=== PATIENT | female | born 1940 | race Hispanic/Latino ===

== ENCOUNTER 2022-04-23 23:19 | Emergency (ER) | payer OTHER ==
--- NOTE | 2022-04-23 23:33 | Emergency Department Report ---
ED General Adult HPI - General Chief complaint: Neuro Symptoms/Deficit Stated complaint: RT SIDE WEAKNESS Time Seen by Provider: 04/23/22 23:24 Source: patient, EMS (Verbal report received from emergency medical services. EMS documentation not available at time of chart dictation ), RN notes reviewed Mode of arrival: Stretcher Limitations: Physical Limitation - History of Present Illness Initial comments: The patient was evaluated in the emergency department for symptoms described in the history of present illness. He/she was evaluated in the context of the global COVID-19 pandemic, which necessitated consideration that the patient might be at risk for infection with the virus that causes COVID-19. Institutional protocols and algorithms that pertain to the evaluation of patients at risk for COVID-19 are in a state of rapid change based on i nformation released by regulatory bodies including the CDC and federal and state organizations. These policies and algorithms were followed during the patient's care in the emergency department. Please note that these policies, procedures and recommendations changed on a rapid basis. Primary care doctor: Tien clemons; Tien #[id number] This is an 82-year-old female. She presents to the department today with a complaint of right arm and right leg weakness and numbness. Reports that her last known well time is 10:00 AM yesterday. She was recently seen at [facility], with a diagnosis of dizzinessheadache, back pain, nausea, hyperlipidemia, and tobacco smoker. Patient had imaging tests, including CT scan brain, CT angiogram head and neck, as well as MRI brain and brainstem. The results of these tests are not known to myself at this time. Patient has follow-up with a neurologist on April 25, and also has follow-up with neurology, on April 29. It appears that she also was [facility], and is currently awaiting for her appointment. She denies headache, midline neck pain, chest pain, abdominal pain, shortness of breath, vomiting, diarrhea and urinary symptoms. She has chronic right-sided hip pain, as well as chronic lower back pain. She feels that her right arm and right leg weakness and numbness are consistent and not getting any better since yesterday -: days(s) Location: left, right, lower extremity Consistency: constant Worsens with: none ED Review of Systems ROS: Stated complaint: RT SIDE WEAKNESS Other details as noted in HPI Constitutional: denies: fever, malaise Eyes: denies: eye discharge ENT: denies: epistaxis Respiratory: denies: cough Cardiovascular: denies: chest pain Gastrointestinal: denies: abdominal pain Musculoskeletal: arthralgia, myalgia. denies: back pain Neurological: weakness, numbness ED Physical Exam - General Limitations: Physical Limitation General appearance: alert, in no apparent distress - Head Head exam: Present: atraumatic, normocephalic - Eye Eye exam: Present: normal appearance, EOMI. Absent: nystagmus - ENT ENT exam: Present: normal exam, normal orophraynx, mucous membranes moist, normal external ear exam - Neck Neck exam: Present: normal inspection, full ROM. Absent: tenderness, meningismus - Respiratory Respiratory exam: Present: normal lung sounds bilaterally. Absent: respiratory distress, wheezes, rales, rhonchi, stridor, decreased breath sounds - Cardiovascular Cardiovascular Exam: Present: regular rate, normal rhythm, normal heart sounds. Absent: bradycardia, tachycardia, irregular rhythm, systolic murmur, diastolic murmur, rubs, gallop - GI/Abdominal GI/Abdominal exam: Present: soft. Absent: distended, tenderness, guarding, rebound, rigid, pulsatile mass - Extremities Exam Extremities exam: Present: normal inspection, full ROM (Left arm and left leg), other (2+ pulses noted in the bilateral upper and lower extremities. There is no palpable cord. negative Homans sign. Muscular compartments are soft. The pelvis is stable.). Absent: calf tenderness - Back Exam Back exam: Present: normal inspection. Absent: tenderness, CVA tenderness (R), CVA tenderness (L), paraspinal tenderness, vertebral tenderness - Neurological Exam Neurological exam: Present: alert, oriented X3, motor sensory deficit (Decree se nsation to light touch right arm and right leg. There is dysmetria noted in the right upper extremity. There is 4 out of 5 strength right arm and right leg), other (There is no facial droop. The tongue is midline. EOMI. 5 out of 5 strength left arm and left leg) - Psychiatric Psychiatric exam: Present: anxious - Skin Skin exam: Present: warm, dry, intact, normal color. Absent: rash ED Course Vital Signs 04/24/22 04/24/22 04/24/22 01:10 02:00 03:00 Temperature 97.8 F Pulse Rate 99 H 83 83 Respiratory 14 98 H 14 Rate Blood Pressure 124/68 164/91 154/65 [Left] O2 Sat by Pulse 96 95 Oximetry - Reevaluation(s) Reevaluation #1: 04/23/22 23:41 Differential diagnosis, including not limited to: Subacute stroke, radiculopathy, deconditioning, myopathy, peripheral neuropathy Assessment and plan: 82-year-old female presenting with right-sided weakness since 10:00 AM yesterday. Patient was reportedly seen at local [place] outside facility, had extensive diagnostic work-up done, the specific results of which are not available to myself at this time. It appears that she has a follow-up with a neurologist in 2 days, as well as follow-up with primary care in 6 days. She is also referred to outpatient physical therapy. We will attempt to obtain results of her recent imaging studies. We will obtain appropriate laboratory studies, x-ray of the chest, x-ray of the pelvis, and noncontrast CT scan of the brain. The patient is not a tPA candidate as she presents more than 4.5 hours after her last known well time. An emergent CT angiogram head and neck is not indicated at this time, as she is presenting more than 24 hours after her last known well time. 04/24/22 02:39 Laboratory studies essentially nonactionable. Discussed with [facility] physician, Dr. Padilla. Patient was just admitted to the [facility] care [place], and had an MRI MRA 2 days ago, which was incomplete secondary to the patient terminated the procedure. Visualized portions of MRI were negative for stroke, but this was an incomplete diagnostic test. However, she also indicates that the patient had an incomplete MRI MRA, as the patient refused completion of the MRI. In addition, an echocardiogram was renato mmended, as was admission to the hospital, initiation of physical therapy. The patient has follow-up with a neurologist tomorrow, April 25, at 12:20 PM. She has follow-up with her primary care doctor on April 29, 4:00 PM. The patient also has referral to physical therapy. As per discussion with Dr. Padilla, patient not on aspirin or antiplatelet candidate, given history of GI bleed. Extensive discussion had with patient and family at the bedside. 04/24/22 02:52 I recommended admission to our hospital for MRI, echocardiogram, and carotid duplex. Discussed rationale extensively with patient and family at the bedside. They articulated understanding. Patient is refusing admission and hospitalization. I suspect that the patient has had a small subacute stroke. She has follow-up with neurology tomorrow. The risks of leaving, including , disability, paralysis, permanent loss of quality of life are discussed with patient and family members at the bedside. At the moment, the patient is awake, alert, oriented, sober, of sound mind and exhibits decision-making capacity. She is free from distracting injury. She understands the risks of leaving AMA. Family states that they will watch her closely, patient to walk with a walker. Return precautions are reviewed. All questions answered. [facility] is updated 04/24/22 05:23 ED Medical Decision Making - Lab Data Result diagrams: 04/23/22 23:42 04/23/22 23:42 Vital Signs 04/24/22 01:10 Temperature 97.8 F Pulse Rate 99 H Respiratory 14 Rate Blood Pressure 124/68 [Left] O2 Sat by Pulse 96 Oximetry Lab Results 04/23/22 04/23/22 04/23/22 Range/Units 23:42 23:42 23:42 WBC 5.9 (4.5-11.0) K/mm3 RBC 4.46 (3.65-5.03) M/mm3 Hgb 11.1 (10.1-14.3) gm/dl Hct 35.4 (30.3-42.9) % MCV 79 (79-97) fl MCH 25 L (28-32) pg MCHC 31 (30-34) % RDW 18.4 H (13.2-15.2) % Plt Count 230 (140-440) K/mm3 Lymph % (Auto) 30.0 (13.4-35.0) % Mathews % (Auto) 7.0 (0.0-7.3) % Eos % (Auto) 2.0 (0.0-4.3) % Baso % (Auto) 1.0 (0.0-1.8) % Lymph # (Auto) 1.8 (1.2-5.4) K/mm3 Mathews # (Auto) 0.4 (0.0-0.8) K/mm3 Eos # (Auto) 0.1 (0.0-0.4) K/mm3 Baso # (Auto) 0.1 (0.0-0.1) K/mm3 Seg Neutrophils % 60.0 (40.0-70.0) % Seg Neutrophils # 3.5 (1.8-7.7) K/mm3 PT 12.7 (12.2-14.9) Sec. INR 0.84 L (0.87-1.13) APTT 24.2 (24.2-36.6) Sec. Thrombin Time 15.3 (15.1-19.6) Sec. Sodium (137-145) mmol/L Potassium (3.6-5.0) mmol/L Chloride (98-107) mmol/L Carbon Dioxide (22-30) mmol/L Anion Gap mmol/L BUN (7-17) mg/dL Creatinine (0.6-1.2) mg/dL Estimated GFR ml/min BUN/Creatinine Ratio % Glucose (65-100) mg/dL Calcium (8.4-10.2) mg/dL Magnesium (1.7-2.3) mg/dL Total Bilirubin (0.1-1.2) mg/dL AST (5-40) units/L ALT (7-56) units/L Alkaline Phosphatase (35-129) units/L Total Creatine Kinase 90 (30-135) units/L CK-MB (CK-2) 2.9 (0.0-4.0) ng/mL CK-MB (CK-2) Rel Index 3.2 (0-4) Troponin T < 0.010 (0.00-0.029) ng/mL Total Protein (6.3-8.2) g/dL Albumin (3.9-5) g/dL Albumin/Globulin Ratio % TSH (0.270-4.200) mlU/mL Urine Color (Yellow) Urine Turbidity (Clear) Specific [place] (Man) (1.003-1.030) Ur Protein (Man) (Negative) mg/dL Ur Ketones (Man) (Negative) Ur Nitrite (Man) (Negative) Urine Bilirubin (Man) (Negative) Leukocyte Esterase (Man) (Negative) Urine WBC (Auto) (0.0-6.0) /HPF Urine RBC (Auto) (0.0-6.0) /HPF U Epithel Cells (Auto) (0-13.0) /HPF Urine RBC (Manual) (Negative) Urine Mucus /HPF Salicylates (2.8-20.0) mg/dL Acetaminophen (10.0-30.0) ug/mL 04/23/22 04/23/22 04/23/22 Range/Units 23:42 23:42 23:42 WBC (4.5-11.0) K/mm3 RBC (3.65-5.03) M/mm3 Hgb (10.1-14.3) gm/dl Hct (30.3-42.9) % MCV (79-97) fl MCH (28-32) pg MCHC (30-34) % RDW (13.2-15.2) % Plt Count (140-440) K/mm3 Lymph % (Auto) (13.4-35.0) % Mathews % (Auto) (0.0-7.3) % Eos % (Auto) (0.0-4.3) % Baso % (Auto) (0.0-1.8) % Lymph # (Auto) (1.2-5.4) K/mm3 Mathews # (Auto) (0.0-0.8) K/mm3 Eos # (Auto) (0.0-0.4) K/mm3 Baso # (Auto) (0.0-0.1) K/mm3 Seg Neutrophils % (40.0-70.0) % Seg Neutrophils # (1.8-7.7) K/mm3 PT (12.2-14.9) Sec. INR (0.87-1.13) APTT (24.2-36.6) Sec. Thrombin Time (15.1-19.6) Sec. Sodium 138 (137-145) mmol/L Potassium 4.7 (3.6-5.0) mmol/L Chloride 101.3 (98-107) mmol/L Carbon Dioxide 23 (22-30) mmol/L Anion Gap 18 mmol/L BUN 12 (7-17) mg/dL Creatinine 1.0 (0.6-1.2) mg/dL Estimated GFR 53 ml/min BUN/Creatinine Ratio 12 % Glucose 96 (65-100) mg/dL Calcium 8.8 (8.4-10.2) mg/dL Magnesium 2.20 (1.7-2.3) mg/dL Total Bilirubin 0.50 (0.1-1.2) mg/dL AST 21 (5-40) units/L ALT 15 (7-56) units/L Alkaline Phosphatase 72 (35-129) units/L Total Creatine Kinase 91 (30-135) units/L CK-MB (CK-2) (0.0-4.0) ng/mL CK-MB (CK-2) Rel Index (0-4) Troponin T (0.00-0.029) ng/mL Total Protein 6.4 (6.3-8.2) g/dL Albumin 4.2 (3.9-5) g/dL Albumin/Globulin Ratio 1.9 % TSH 0.852 (0.270-4.200) mlU/mL Urine Color (Yellow) Urine Turbidity (Clear) Specific [place] (Man) (1.003-1.030) Ur Protein (Man) (Negative) mg/dL Ur Ketones (Man) (Negative) Ur Nitrite (Man) (Negative) Urine Bilirubin (Man) (Negative) Leukocyte Esterase (Man) (Negative) Urine WBC (Auto) (0.0-6.0) /HPF Urine RBC (Auto) (0.0-6.0) /HPF U Epithel Cells (Auto) (0-13.0) /HPF Urine RBC (Manual) (Negative) Urine Mucus /HPF Salicylates < 0.3 L (2.8-20.0) mg/dL Acetaminophen (10.0-30.0) ug/mL 04/23/22 04/23/22 Range/Units 23:42 Unknown WBC (4.5-11.0) K/mm3 RBC (3.65-5.03) M/mm3 Hgb (10.1-14.3) gm/dl Hct (30.3-42.9) % MCV (79-97) fl MCH (28-32) pg MCHC (30-34) % RDW (13.2-15.2) % Plt Count (140-440) K/mm3 Lymph % (Auto) (13.4-35.0) % Mathews % (Auto) (0.0-7.3) % Eos % (Auto) (0.0-4.3) % Baso % (Auto) (0.0-1.8) % Lymph # (Auto) (1.2-5.4) K/mm3 Mathews # (Auto) (0.0-0.8) K/mm3 Eos # (Auto) (0.0-0.4) K/mm3 Baso # (Auto) (0.0-0.1) K/mm3 Seg Neutrophils % (40.0-70.0) % Seg Neutrophils # (1.8-7.7) K/mm3 PT (12.2-14.9) Sec. INR (0.87-1.13) APTT (24.2-36.6) Sec. Thrombin Time (15.1-19.6) Sec. Sodium (137-145) mmol/L Potassium (3.6-5.0) mmol/L Chloride (98-107) mmol/L Carbon Dioxide (22-30) mmol/L Anion Gap mmol/L BUN (7-17) mg/dL Creatinine (0.6-1.2) mg/dL Estimated GFR ml/min BUN/Creatinine Ratio % Glucose (65-100) mg/dL Calcium (8.4-10.2) mg/dL Magnesium (1.7-2.3) mg/dL Total Bilirubin (0.1-1.2) mg/dL AST (5-40) units/L ALT (7-56) units/L Alkaline Phosphatase (35-129) units/L Total Creatine Kinase (30-135) units/L CK-MB (CK-2) (0.0-4.0) ng/mL CK-MB (CK-2) Rel Index (0-4) Troponin T (0.00-0.029) ng/mL Total Protein (6.3-8.2) g/dL Albumin (3.9-5) g/dL Albumin/Globulin Ratio % TSH (0.270-4.200) mlU/mL Urine Color Colorless (Yellow) Urine Turbidity Clear (Clear) Specific [place] (Man) 1.000 L (1.003-1.030) Ur Protein (Man) <30 mg dl (Negative) mg/dL Ur Ketones (Man) Negative (Negative) Ur Nitrite (Man) Negative (Negative) Urine Bilirubin (Man) Negative (Negative) Leukocyte Esterase (Man) Negative (Negative) Urine WBC (Auto) 2.0 (0.0-6.0) /HPF Urine RBC (Auto) < 1.0 (0.0-6.0) /HPF U Epithel Cells (Auto) 3.0 (0-13.0) /HPF Urine RBC (Manual) Trace (Negative) Urine Mucus Few /HPF Salicylates (2.8-20.0) mg/dL Acetaminophen 5.0 L (10.0-30.0) ug/mL - EKG Data -: EKG Interpreted by Mi EKG shows normal: sinus rhythm Rate: normal - EKG Data When compared to previous EKG there are: previous EKG unavailable 04/24/22 02:38 The EKG is interpreted at 1: 42 Sinus rhythm, 80 bpm. Normal axis, normal P wave axis, normal intervals, and motion artifact. This EKG is not a STEMI - Radiology Data Radiology results: pending, report reviewed, image reviewed CT HEAD WITHOUT CONTRAST INDICATION / CLINICAL INFORMATION: Right-sided weakness,. TECHNIQUE: CT head was performed without administration of intravenous contrast. All CT scans at this location are performed using CT dose reduction for ALARA by means of automated exposure control. COMPARISON: None available. FINDINGS: CEREBRAL HEMISPHERES: Minimal atrophy is present. There is extensive bilateral white matter hypoattenuation compatible with advanced microvascular ischemic disease. Small lacunar infarction additionally suggested within the left basal ganglia. HEMORRHAGE: None. CEREBELLUM / BRAINSTEM: No significant abnormality. ORBITS: No significant abnormality. SOFT TISSUES: No significant abnormality. SKULL: No significant abnormality. PARANASAL SINUSES / MASTOID AIR CELLS: Normal as visualized. ADDITIONAL FINDINGS: None. IMPRESSION: 1. Extensive bilateral white matter hypoattenuation considered compatible with advanced microvascular ischemic disease. No specific evidence of acute infarction. MRI recommended for further evaluation if clinical concern for acute infarction is present. Signer Name: Krishna Meehan II, MD Signed: 04/23/2022 11:49 PM Workstation Name: [id number] CHEST 1 VIEW INDICATION / CLINICAL INFORMATION: Weakness. COMPARISON: None available. FINDINGS: SUPPORT DEVICES: None. HEART / MEDIASTINUM: Heart size is within normal limits. Mediastinal contour demonstrates no significant abnormality. LUNGS / PLEURA: Lungs are clear for degree of inspiration and technique utilized. BONES: No significant osseous abnormality. ADDITIONAL FINDINGS: No significant additional findings. IMPRESSION: 1. No active cardiopulmonary disease. Signer Name: Krishna Meehan II, MD Signed: 04/24/2022 12:37 AM Workstation Name: [id number] PELVIS 1 VIEW(S) INDICATION / CLINICAL INFORMATION: Chronic hip pain and pelvic pain COMPARISON: None available. FINDINGS: Contrast and bowel gas overshadowing the sacrum. 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 No distinct evidence of acute fracture involving the right hip. The left femur demonstrates no acute findings. The visualized pelvis is unremarkable. IMPRESSION: 1. 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 No acute osseous pathology. Signer Name: Krishna Meehan II, MD Signed: 04/23/2022 11:55 PM Workstation Name: [id number] Critical care attestation.: If time is entered above; I have spent that time in minutes in the direct care of this critically ill patient, excluding procedure time. ED Disposition Clinical Impression: Right sided weakness, Hip arthritis Disposition: 07 LEFT AGAINST MEDICAL ADVICE Is pt being admited?: No Does the pt Need Aspirin: No Condition: Undetermined Additional Instructions: As we discussed, you have left the hospital/emergency room AGAINST MEDICAL ADVICE. By leaving, you risked , disability, paralysis, permanent loss of quality of life. The ER is open 24 hours a day, 7 days a week. It never closes. Please return to the emergency room right away if and when you change your mind. If you decide not to return to the emergency room, please follow-up with the listed physician referrals as soon as possible. Patient has follow-up with outpatient neurology, Dr. Nadia Burrowsiaz April 25, 12: 20 PM, [facility], [address] [place] [address]; [phone] Patient has follow-up with her primary care doctor, Dr. Prieto, April 29, 4:00 PM, [facility], [address] [facility], [id number], [phone] [facility], phone #[phone], for physical therapy. She will be contacted to make this appointment within a few days. Please return to the emergency room right away with new pain, worsened pain, migration of pain, projectile vomiting, change in mental status, confusion, inability tolerate liquid feeds, new, worsened or different symptoms not present on the initial emergency room evaluation Referrals: nadia lane [Other] - 04/25/22 12:00 pm ([facility] neurology apr 25 12:20 pm) Forms: AMA Form
[2022-04-24 00:23] LABS: Albumin 4.2 g/dL (3.9-5); Calcium 8.8 mg/dL (8.4-10.2)
--- NOTE | 2022-04-24 00:53 | Cat Scan Report ---
CT HEAD WITHOUT CONTRAST INDICATION / CLINICAL INFORMATION: Right-sided weakness,. TECHNIQUE: CT head was performed without administration of intravenous contrast. All CT scans at this location are performed using CT dose reduction for ALARA by means of automated exposure control. COMPARISON: None available. FINDINGS: CEREBRAL HEMISPHERES: Minimal atrophy is present. There is extensive bilateral white matter hypoatten uation compatible with advanced microvascular ischemic disease. Small lacunar infarction additionally suggested within the left basal ganglia. HEMORRHAGE: None. CEREBELLUM / BRAINSTEM: No significant abnormality. ORBITS: No significant abnormality. SOFT TISSUES: No significant abnormality. SKULL: No significant abnormality. PARANASAL SINUSES / MASTOID AIR CELLS: Normal as visualized. ADDITIONAL FINDINGS: None. IMPRESSION: 1. Extensive bilateral white matter hypoattenuation considered compatible with advanced microvascular ischemic disease. No specific evidence of acute infarction. MRI recommended for further evaluation i f clinical concern for acute infarction is present. Signer Name: Krishna Meehan II, MD Signed: 04/24/2022 12:49 AM Workstation Name: [id number]
--- NOTE | 2022-04-24 00:59 | XRay Report ---
PELVIS 1 VIEW(S) INDICATION / CLINICAL INFORMATION: Chronic hip pain and pelvic pain COMPARISON: None available. FINDINGS: Contrast and bowel gas overshadowing the sacrum. 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 No distinct evidence of acute fracture involving the right hip. The left femur demonstrates no acute findings. The visualized pelvis is unremarkable. IMPRESSION: 1. 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 No acute osseous pathology. Signer Name: Krishna Meehan II, MD Signed: 04/24/2022 12:55 AM Workstation Name: [id number]
[2022-04-24 01:04] LABS: Color,Urine Colorless (Yellow)
[2022-04-24 01:06] LABS: Mucus,Urine FEW /HPF; RBC,Urine < 1.0 /HPF (0.0-6.0)
[2022-04-24 01:07] LABS: Basophils # (Auto) 0.1 K/mm3 (0.0-0.1); Eosinophils # (Auto) 0.1 K/mm3 (0.0-0.4); Hematocrit 35.4 % (30.3-42.9); Hemoglobin 11.1 gm/dl (10.1-14.3); Lymphocytes # (Auto) 1.8 K/mm3 (1.2-5.4); Mean Corpuscular HGB Conc 31 % (30-34); Mean Corpuscular Volume 79 fl (79-97); Monocytes # (Auto) 0.4 K/mm3 (0.0-0.8); Platelet Count 230 K/mm3 (140-440); Red Blood Count 4.46 M/mm3 (3.65-5.03); Red Cell Distribution Width 18.4 % (13.2-15.2)
[2022-04-24 01:13] LABS: Creatine Kinase MB 2.9 ng/mL (0.0-4.0)
[2022-04-24 01:19] LABS: INR 0.84 (0.87-1.13)
[2022-04-24 01:20] LABS: Partial Thromboplastin Time 24.2 Sec. (24.2-36.6); Thrombin Time 15.3 Sec. (15.1-19.6)
--- NOTE | 2022-04-24 01:41 | XRay Report ---
CHEST 1 VIEW INDICATION / CLINICAL INFORMATION: Weakness. COMPARISON: None available. FINDINGS: SUPPORT DEVICES: None. HEART / MEDIASTINUM: Heart size is within normal limits. Mediastinal contour demonstrates no signific ant abnormality. LUNGS / PLEURA: Lungs are clear for degree of inspiration and technique utilized. BONES: No significant osseous abnormality. ADDITIONAL FINDINGS: No significant additional findings. IMPRESSION: 1. No active cardiopulmonary disease. Signer Name: Krishna Meehan II, MD Signed: 04/24/2022 1:37 AM Workstation Name: [id number]
[2022-04-24 03:50] VITALS: BP 154/65
--- NOTE | 2022-04-25 17:29 | Electrocardiograph Report ---
[facility] Test Date: 2022-04-24 Test Time: 01:42:28 Pat Name: SAE SWANSON Department: Room: Gender: F Alignment Technician: PRAVIN : 1940 Requested By: MARSHA LIZAMA Order Number: [id number] Reading MD: Joce Deluca Measurements Intervals [place] Rate: 76 P: 70 [place]: 138 QRS: 37 QRSD: 73 T: 27 QT: 370 QTc: 416 Interpretive Statements Sinus rhythm No previous ECG available for comparison Electronically Signed On 04-25-2022 17:28:41 EDT by Joce Deluca
== END 2022-04-24 03:00 | disposition left against medical advice (07) ==
LOC: ED 23:19
DX: M62.81 Muscle weakness (generalized) (principal); M13.859 Other specified arthritis, unspecified hip
CPT/HCPCS: 36415; 70450; 71045; 72170; 80053; 80320; 81001; 82550; 82553; 83735; 84443; 84484; 85025; 85610; 85670; 85730; 93005; 99285; G0480